=== PATIENT | male | born 1990 | race Caucasian/White ===

== ENCOUNTER 2020-04-29 09:25 | Emergency (ER) | payer BC ==
--- NOTE | 2020-04-29 10:39 | EDM.PDOC ---
ED HPI GENERAL MEDICAL PROBLEM - General Chief Complaint: Chest Pain Stated Complaint: CHEST PRESSURE Time Seen by Provider: 04/29/20 09:38 Source of Information: Reports: Patient History Limitations: Reports: No Limitations - History of Present Illness INITIAL COMMENTS - FREE TEXT/NARRATIVE: The patient presents with chest pain. This started yesterday on the right side. The pain is constant but there are times when it is worse like with breathing. He has no fever, chills, cough, congestion, runny nose, shortness of breath, abdominal pain, nausea or vomiting. He does not smoke. His mom had stents. He has no history of HTN, hypercholesterolemia, or hyperlipidemia. Onset: Gradual Duration: Day(s): (Yesterday) Location: Reports: Chest Quality: Reports: Sharp Severity: Mild Improves with: Reports: None Worsens with: Reports: None Associated Symptoms: Reports: Chest Pain. Denies: Cough, Fever/Chills, Headaches, Nausea/Vomiting, Shortness of Breath Right Chest Pain Score (Numeric/FACES): 3 - Related Data Allergies Allergy/AdvReac Type Severity Reaction Status Date / Time cefprozil Allergy Severe Rash Verified 04/29/20 09:49 Home Meds: Home Meds . [No Known Home Meds] 04/29/20 [History] Past Medical History Genitourinary History: Reports: None - Infectious Disease History Infectious Disease History: Reports: Chicken Pox, Novel Coronavirus - Past Surgical History HEENT Surgical History: Reports: Adenoidectomy, Myringotomy w Tube(s), Tonsillectomy Social & Family History - Family History Family Medical History: No Pertinent Family History - Tobacco Use Tobacco Use Status *Q: Former Tobacco User Used Tobacco, but Quit: Yes Month/Year Tobacco Last Used: 2009 - Caffeine Use Caffeine Use: Reports: None - Recreational Drug Use Recreational Drug Use: Yes Drug Use in Last 12 Months: Yes Recreational Drug Type: Reports: Marijuana/Hashish Recreational Drug Use Frequency: Rarely ED ROS GENERAL - Review of Systems Review Of Systems: See Below Constitutional: Reports: No Symptoms HEENT: Reports: No Symptoms Respiratory: Reports: No Symptoms Cardiovascular: Reports: Chest Pain Endocrine: Reports: No Symptoms GI/Abdominal: Reports: No Symptoms : Reports: No Symptoms Musculoskeletal: Reports: No Symptoms ED EXAM, GENERAL - Physical Exam Exam: See Below Exam Limited By: No Limitations General Appearance: Alert, No Apparent Distress Ears: Normal External Exam Nose: Normal Inspection Head: Atraumatic, Normocephalic Neck: Normal Inspection Respiratory/Chest: No Respiratory Distress, Lungs Clear, Normal Breath Sounds Cardiovascular: Regular Rate, Rhythm, No Edema, No Murmur GI/Abdominal: Soft, Non-Tender, No Organomegaly, No Mass Back Exam: Normal Inspection Extremities: Normal Inspection #1 Interpretation EKG Date: 04/29/20 Time: 10:17 Rhythm: NSR Rate (Beats/Min): 65 [place]: Normal P-Wave: Present QRS: Normal ST-T: Elevated (Anterior leads normal early repol) QT: Normal Course - Vital Signs Last Recorded V/S: Last Vital Signs Temp 96.7 F L 04/29/20 09:38 Pulse 69 04/29/20 09:38 Resp 18 04/29/20 09:38 BP 141/98 H 04/29/20 09:38 Pulse Ox 99 04/29/20 09:38 - Orders/Labs/Meds Orders: Active Orders 24 hr Category Date Time Status Cardiac Monitoring [RC] . DIRECTED Care 04/29/20 09:52 Active EKG Documentation Completion [RC] STAT Care 04/29/20 09:53 Active Chest 2V [CR] Stat Exams 04/29/20 09:53 Taken Labs: Laboratory Tests 04/29/20 04/29/20 04/29/20 Range/Units 10:15 10:15 10:15 WBC 6.56 (4.23-9.07) K/mm3 RBC 5.04 (4.63-6.08) M/mm3 Hgb 15.5 (13.7-17.5) gm/dl Hct 45.7 (40.1-51.0) % MCV 90.7 (79.0-92.2) fl MCH 30.8 (25.7-32.2) pg MCHC 33.9 (32.2-35.5) g/dl RDW Std Deviation 41.6 (35.1-43.9) fL Plt Count 261 (163-337) K/mm3 MPV 9.2 L (9.4-12.3) fl Neut % (Auto) 62.9 (34.0-67.9) % Lymph % (Auto) 23.0 (21.8-53.1) % [place] % (Auto) 12.2 (5.3-12.2) % Eos % (Auto) 1.4 (0.8-7.0) Baso % (Auto) 0.3 (0.1-1.2) % Neut # (Auto) 4.13 (1.78-5.38) K/mm3 Lymph # (Auto) 1.51 (1.32-3.57) K/mm3 [place] # (Auto) 0.80 (0.30-0.82) K/mm3 Eos # (Auto) 0.09 (0.04-0.54) K/mm3 Baso # (Auto) 0.02 (0.01-0.08) K/mm3 D-Dimer, Quantitative < 0.19 L (0.19-0.50) mg/L Sodium 138 (136-145) mEq/L Potassium 4.1 (3.5-5.1) mEq/L Chloride 102 (98-107) mEq/L Carbon Dioxide 29 (21-32) mEq/L Anion Gap 11.1 (5-15) BUN 12 (7-18) mg/dL Creatinine 1.0 (0.7-1.3) mg/dL Est Cr Clr Drug Dosing 123.18 mL/min Estimated GFR (MDRD) > 60 (>60) mL/min BUN/Creatinine Ratio 12.0 L (14-18) Glucose 101 (74-106) mg/dL Calcium 9.2 (8.5-10.1) mg/dL Total Bilirubin 0.9 (0.2-1.0) mg/dL AST 21 (15-37) U/L ALT 42 (16-63) U/L Alkaline Phosphatase 68 (46-116) U/L Troponin I < 0.017 (0.00-0.056) ng/mL Total Protein 7.4 (6.4-8.2) g/dl Albumin 4.1 (3.4-5.0) g/dl Globulin 3.3 gm/dL Albumin/Globulin Ratio 1.2 (1-2) - Re-Assessments/Exams Free Text/Narrative Re-Assessment/Exam: 04/29/20 10:38 I ordered an EKG, CXR and labs. His EKG shows a NSR with no acute changes. His CXR looks good. 04/29/20 11:22 His CBC and CMP look good. His troponin and D-dimer is negative. I will discharge him home. It appears he has some pleurisy. Departure - Departure Time of Disposition: 11:30 Disposition: Home, Self-Care 01 Condition: Good Clinical Impression: Pleurisy Referrals: PCP,None [Primary Care Provider] - Javy Lopes PA-C [Physician Live In Caregiver] - 1 Week Forms: ED Department Discharge, ED Return to Work/School Form Additional Instructions: Take motrin or tylenol for pain. Follow up with your doctor within a week. Please return if you are worse. Sepsis Event Note (ED) - Evaluation Sepsis Screening Result: No Definite Risk - Focused Exam Vital Signs: Vital Signs Temp Pulse Resp BP Pulse Ox 04/29/20 09:38 96.7 F L 69 18 141/98 H 99 - My Orders Last 24 Hours: My Active Orders 04/29/20 09:52 Cardiac Monitoring [RC] . DIRECTED 04/29/20 09:53 EKG Documentation Completion [RC] STAT Chest 2V [CR] Stat - Assessment/Plan Last 24 Hours: My Active Orders 04/29/20 09:52 Cardiac Monitoring [RC] . DIRECTED 04/29/20 09:53 EKG Documentation Completion [RC] STAT Chest 2V [CR] Stat
--- NOTE | 2020-04-29 12:28 | CR ---
Chest: 2 views of the chest were obtained. Comparison: No prior chest imaging is available. Heart size and mediastinum are normal. Lungs are clear with no acute parenchymal change. Bony structures appear within normal limits for the patient's age. Impression: 1. Nothing acute is appreciated on 2 view chest x-ray. Diagnostic code #1
== END 2020-04-29 11:50 | disposition home or self-care (01) ==
LOC: JD.ED 09:25
DX: R09.1 Pleurisy (principal); Z88.1 Allergy status to other antibiotic agents; Z90.49 Acquired absence of other specified parts of digestive tract; Z87.891 Personal history of nicotine dependence
CPT/HCPCS: 36415; 71046; 71046-26; 80053; 84484; 85025; 85379; 93005; 99285-25